=== PATIENT | male | born 1970 | race African-American/Black ===

== ENCOUNTER → 2021-01-28 06:40 | Outpatient (CLI) | payer BC, SELFPAY ==
--- NOTE | 2021-01-28 06:43 | DI.MRI.S_ITS ---
PROCEDURE: MR SHOULDER RT WO CON INDICATIONS: Impingement syndrome of right shoulder TECHNIQUE: Noncontrast oblique coronal T2 fast spin echo with fat saturation, oblique sagittal T1 spin echo and T2 fast spin echo with fat saturation, axial T1 spin echo and T2 fast spin echo with fat saturation through the shoulder. COMPARISON: None. FINDINGS: Image quality: Excellent. Rotator cuff: There is mild supraspinatus and infraspinatus tendinosis. The teres minor and subscapularis tendons are intact. There is no significant rotator cuff muscle atrophy. Bones and bursae: No bone marrow contusions or fractures. Full-thickness cartilage loss is seen in the medial humeral head and mid to inferior glenoid with subchondral cystic changes and marginal osteophyte formation. Subchondral cystic changes versus intraosseous ganglion is seen in the posterosuperior glenoid. Moderate degenerative changes are seen at the acromioclavicular joint with small marginal osteophytes as well as subchondral cystic changes and edema. Trace subacromial/subdeltoid bursal fluid is present. Capsule and soft tissues: The inferior labrum appears diminutive and may be chronically torn. There is degeneration and nondisplaced tearing of the posterosuperior labrum. The rotator interval fat appears normal. The glenohumeral ligaments are intact. IMPRESSION: 1. Severe glenohumeral osteoarthrosis with full-thickness cartilage loss, subchondral edema and cystic changes, and marginal osteophyte formation. 2. Moderate acromioclavicular osteoarthrosis. 3. 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 4. Moderate tendinosis of the biceps long head tendon. 5. Mild supraspinatus and infraspinatus tendinosis. No significant rotator cuff tendon tear. Dictated by: Jose Long M.D. on 01/28/2021 at 9:32 Approved by: Jose Long M.D. on 01/28/2021 at 9:38
== END ==
PROVIDERS: Referring Provider Internal Medicine; Visit Provider Internal Medicine
DX: M75.41 Impingement syndrome of right shoulder (principal); M19.011 Primary osteoarthritis, right shoulder; S43.491A Other sprain of right shoulder joint, initial encounter
CPT/HCPCS: 73221